=== PATIENT | male | born 1955 ===

== ENCOUNTER 2017-12-12 21:37 | Inpatient (IN) | payer MEDICAID ==
[~2017-12-12] VITALS: Ht 174 cm; Wt 80.8 kg
[~2017-12-12 21:37] MED LIST: CLIN300C8 PO; LISI-167 PO; LORA-446 PO; METH40TA3 PO
[2017-12-12] MEDS ORDERED: SODIUM CHLORIDE 0.9% 1,000 ML IV ONE (22:47)
[2017-12-12] MEDS ORDERED: MORPHINE SULFATE 4 MG/ML, 1ML ONE (22:50)
[2017-12-12] MEDS ORDERED: SODIUM CHLORIDE FLUSH 10ML SYR IVF ONE (23:00)
[2017-12-12] MEDS ORDERED: SODIUM CHLORIDE 0.9% 1,000ML IVBOLUS ONE (23:00)
[2017-12-12] MEDS ORDERED: MORPHINE SULFATE 4 MG/ML, 1ML IVPush PRN (23:00)
[2017-12-12 23:29] LABS: MEAN CORPUSCULAR HEMOGLOBIN 33.6 pg (27.5-34.5); MEAN CORPUSCULAR HGB CONC 35.1 g/dL (33.2-36.2); MEAN CORPUSCULAR VOLUME 95.9 fL (81-97); RED BLOOD COUNT 3.04 x10^6/uL (4.38-5.82); RED CELL DISTRIBUTION WIDTH 14.4 % (9.4-14.8)
[2017-12-12 23:39] LABS: ALANINE AMINOTRANSFERASE 44 U/L (12-78); ALBUMIN 2.1 g/dL (3.4-5.0); ANION GAP 10 mmol/L (5-15); CALCIUM 7.4 mg/dL (8.5-10.1); CHLORIDE 96 mmol/L (98-107); CREATININE 0.91 mg/dL (0.7-1.3)
[2017-12-12 23:42] LABS: ALKALINE PHOSPHATASE 244 U/L (45-117); BILIRUBIN,TOTAL 2.5 mg/dL (0.2-1.0); TOTAL PROTEIN 8.3 g/dL (6.4-8.2)
[2017-12-12 23:50] LABS: MD SCAN; MEAN PLATELET VOLUME 7.5 fL (7.4-10.4); PLATELET COUNT 89 x10^3/uL (130-400)
[2017-12-12 23:51] LABS: BASOPHILS # (AUTO) 0.03 x10^3/uL (0-0.1); BASOPHILS % (AUTO) 0 % (0-1); EOSINOPHILS # (AUTO) 0.01 x10^3/uL (0-0.4); EOSINOPHILS % (AUTO) 0 % (1-7); LYMPHOCYTES # (AUTO) 0.46 x10^3/uL (1-3.4); LYMPHOCYTES % (AUTO) 5 % (22-44); MONOCYTES # (AUTO) 0.61 x10^3/uL (0.2-0.8); MONOCYTES % (AUTO) 6 % (2-9); NEUTROPHILS % (AUTO) 89 % (42-75)
[2017-12-13] MEDS ORDERED: CLINDAMYCIN PMX 900MG/50ML 50 ML IV ONE (00:30)
[2017-12-13] MEDS ORDERED: CLINDAMYCIN PMX 900MG/50ML 50 ML ONE (00:39)
[2017-12-13] MEDS ORDERED: POTASSIUM CHLORIDE 20 MEQ in SODIUM CHLORIDE 0.9% 250 ML IV ONE (01:00)
[2017-12-13] MEDS ORDERED: EPINEPHRINE 1 MG/ML, 1ML ONE (02:13)
[2017-12-13] MEDS ORDERED: BUPIVACAINE/PF 0.5% ONE (02:13)
[2017-12-13] MEDS ORDERED: MIDAZOLAM 1 MG/ML, 2ML ONE (02:29)
[2017-12-13] MEDS ORDERED: FENTANYL PF 250 MCG/5ML ONE ×3 (02:30→03:06)
[2017-12-13] MEDS ORDERED: SUCCINYLCHOLINE 20 MG/ML, 10ML ONE (02:35)
[2017-12-13] MEDS ORDERED: PROPOFOL 10 MG/ML, 20ML ONE (02:35)
[2017-12-13] MEDS ORDERED: FENTANYL PF 100 MCG/2ML ONE (03:12)
[2017-12-13] MEDS ORDERED: HYDROmorphone 2 MG/ML, 1ML ONE (03:12)
[2017-12-13] MEDS: FENTANYL PF 100 MCG/2ML IV PRN ×2 (03:26→03:36)
[2017-12-13] MEDS: HYDROmorphone 1 MG/ML, 1ML IV PRN ×4 (03:27→03:52)
[2017-12-13] MEDS ORDERED: VANCOMYCIN PMX 1GM/200ML 200 ML IVPB SCH (03:30)
[2017-12-13] MEDS ORDERED: OXYcodone 5 MG/5 ML ORAL.SOL UDC PO PRN (03:30)
[2017-12-13] MEDS ORDERED: LABETALOL 5MG/ML, 20ML IV PRN (03:30)
[2017-12-13] MEDS ORDERED: LORazepam 2 MG/ML, 1ML IVPush PRN (03:30)
[2017-12-13] MEDS ORDERED: ALBUTEROL SULFATE 2.5 MG/3 ML NPPB PRN (03:30)
[2017-12-13] MEDS ORDERED: PHARMACY INSTRUCTION MC PRN (03:30)
[2017-12-13] MEDS ORDERED: HALOPERIDOL 5 MG/ML IV PRN (03:30)
[2017-12-13] MEDS ORDERED: hydrALAzine 20 MG/ML, 1ML IV PRN (03:30)
[2017-12-13] MEDS ORDERED: MEPERIDINE/PF 25MG/0.5ML IVPush PRN (03:30)
[2017-12-13] MEDS ORDERED: ONDANSETRON 2MG/ML, 2ML IVPush PRN (03:30)
[2017-12-13 04:29] VITALS: BP 126/79
[2017-12-13] MEDS: LORazepam 2 MG/ML, 1ML IV PRN ×2 (04:48→14:51)
[2017-12-13] MEDS: PIPERACILLIN/TAZO/PMX 3.375GM 50 ML IV SCH ×5 (05:55→23:16)
[2017-12-13] MEDS: POTASSIUM CHLORIDE 20 MEQ in D5%-0.45% NACL 1,000 ML IV SCH ×2 (06:46→14:20)
[2017-12-13 07:20] VITALS: BP 127/77
[2017-12-13] MEDS ORDERED: DOCUSATE 100 MG CAPSULE PO PRN (08:30)
[2017-12-13] MEDS ORDERED: POLYETHYLENE GLYCOL 17 GM PACKET PO PRN (08:30)
[2017-12-13] MEDS ORDERED: BISACODYL 10 MG SUPP PR PRN (08:30)
[2017-12-13] MEDS ORDERED: hydrALAzine 20 MG/ML, 1ML IVPush PRN (08:30)
[2017-12-13 09:42] LABS: MEAN CORPUSCULAR HEMOGLOBIN 33.6 pg (27.5-34.5); MEAN CORPUSCULAR HGB CONC 34.9 g/dL (33.2-36.2); MEAN CORPUSCULAR VOLUME 96.3 fL (81-97); MEAN PLATELET VOLUME 7.5 fL (7.4-10.4); PLATELET COUNT 75 x10^3/uL (130-400); RED BLOOD COUNT 2.43 x10^6/uL (4.38-5.82); RED CELL DISTRIBUTION WIDTH 14.3 % (9.4-14.8)
[2017-12-13 09:53] LABS: ALBUMIN 1.6 g/dL (3.4-5.0); ANION GAP 8 mmol/L (5-15); CALCIUM 6.7 mg/dL (8.5-10.1); CHLORIDE 99 mmol/L (98-107)
[2017-12-13 09:55] LABS: ALANINE AMINOTRANSFERASE 32 U/L (12-78); ALKALINE PHOSPHATASE 181 U/L (45-117); BILIRUBIN,TOTAL 2.1 mg/dL (0.2-1.0); CREATININE 0.75 mg/dL (0.7-1.3); TOTAL PROTEIN 6.3 g/dL (6.4-8.2)
[2017-12-13] MEDS: MULTIVITAMIN 1 TABLET PO SCH (10:01)
[2017-12-13] MEDS: OXYcodone IR 5MG TABLET PO PRN ×2 (10:01→19:27)
[2017-12-13] MEDS: SODIUM CHLORIDE 0.9% 1,000 ML IV SCH ×2 (10:01→16:36)
[2017-12-13] MEDS: THIAMINE 100MG TABLET PO SCH (10:01)
[2017-12-13 10:04] LABS: INTERNATIONAL NORMALIZED RATIO 1.44 (0.93-1.1); PROTHROMBIN TIME 14.7 Seconds (9.6-11.5)
[2017-12-13 10:17] LABS: FOLATE LEVEL 7.3 ng/mL (3.1-17.5)
[2017-12-13 10:27] LABS: MD YES
[2017-12-13 10:28] LABS: BAND#(MANUAL) 0.72 x10^3/uL; BANDS%(MANUAL) 12 % (0-7); BASOS#(MANUAL) 0.06 x10^3/uL (0-0.1); BASOS% (MANUAL) 1 % (0-1); EOS#(MANUAL) 0.12 x10^3/uL (0.0-0.4); EOS% (MANUAL) 2 % (1-7); LYMPH#(MANUAL) 0.72 x10^3/uL (1-3.4); LYMPHS% (MANUAL) 12 % (22-44); METAMYELOCYTES# (MANUAL) 0.06 x10^3/uL (0-0); METAMYELOCYTES% (MANUAL) 1 % (0-1); MONOS% (MANUAL) 5 % (2-9); SEG#(MANUAL) 4.02 x10^3/uL (1.8-6.8); SEGS% (MANUAL) 67 % (42-75)
[2017-12-13 10:30] LABS: <PLATELET ESTIMATE> DECREASED; <PLT MORPHOLOGY> NORMAL PLT MORPH; <RBC MORPHOLOGY> NORMAL
[2017-12-13] MEDS: MORPHINE SULFATE 4 MG/ML, 1ML IVPush PRN ×2 (10:58→23:16)
[2017-12-13] MEDS ORDERED: POTASSIUM CHLORIDE 20 MEQ TAB.ER.PRT PO ONE (12:30)
[2017-12-13] MEDS ORDERED: POTASSIUM CHLORIDE 40 MEQ in SODIUM CHLORIDE 0.9% 500 ML IV ONE (12:42)
[2017-12-13 12:45] VITALS: BP 138/81
[2017-12-13 18:45] VITALS: BP 121/73
[2017-12-13] MEDS: DIPHENHYDRAMINE 25 MG CAPSULE PO PRN (21:01)
[2017-12-13 23:42] LABS: AMPHETAMINE SCREEN, URINE Negative (Negative); BARBITURATE SCREEN, URINE Negative (Negative); BENZODIAZEPINE SCREEN, URINE Positive (Negative); CANNABINOID SCREEN, URINE Negative (Negative); COCAINE SCREEN, URINE Negative (Negative); METHADONE SCREEN, URINE Negative (Negative); OPIATE SCREEN, URINE Positive (Negative)
[2017-12-14] MEDS: POTASSIUM CHLORIDE 20 MEQ in D5%-0.45% NACL 1,000 ML IV SCH ×2 (01:13→20:00)
[2017-12-14] MEDS: SODIUM CHLORIDE 0.9% 1,000 ML IV SCH ×2 (01:18→14:11)
[2017-12-14] MEDS: MORPHINE SULFATE 4 MG/ML, 1ML IVPush PRN ×6 (02:29→21:35)
[2017-12-14 03:20] VITALS: BP 133/73
[2017-12-14] MEDS: LORazepam 2 MG/ML, 1ML IV PRN ×3 (03:38→21:34)
[2017-12-14] MEDS: PIPERACILLIN/TAZO/PMX 3.375GM 50 ML IV SCH ×3 (05:07→16:55)
[2017-12-14 05:23] LABS: MEAN CORPUSCULAR HEMOGLOBIN 34.1 pg (27.5-34.5); MEAN CORPUSCULAR HGB CONC 35.1 g/dL (33.2-36.2); MEAN CORPUSCULAR VOLUME 97.1 fL (81-97); RED BLOOD COUNT 2.23 x10^6/uL (4.38-5.82); RED CELL DISTRIBUTION WIDTH 14.4 % (9.4-14.8)
[2017-12-14 05:28] LABS: ALBUMIN 1.6 g/dL (3.4-5.0); ANION GAP 8 mmol/L (5-15); CALCIUM 6.1 mg/dL (8.5-10.1); CHLORIDE 104 mmol/L (98-107)
[2017-12-14 05:40] LABS: ALANINE AMINOTRANSFERASE 26 U/L (12-78); ALKALINE PHOSPHATASE 165 U/L (45-117); BILIRUBIN,TOTAL 1.6 mg/dL (0.2-1.0); MD YES; MEAN PLATELET VOLUME 7.7 fL (7.4-10.4); PLATELET COUNT 68 x10^3/uL (130-400); TOTAL PROTEIN 6.3 g/dL (6.4-8.2)
[2017-12-14 05:44] LABS: BAND#(MANUAL) 0.18 x10^3/uL; BANDS%(MANUAL) 5 % (0-7); EOS#(MANUAL) 0.11 x10^3/uL (0.0-0.4); EOS% (MANUAL) 3 % (1-7); LYMPHS% (MANUAL) 11 % (22-44); MONOS#(MANUAL) 0.14 x10^3/uL (0.3-2.7); MONOS% (MANUAL) 4 % (2-9); SEG#(MANUAL) 2.77 x10^3/uL (1.8-6.8); SEGS% (MANUAL) 77 % (42-75)
[2017-12-14 05:46] LABS: <PLATELET ESTIMATE> DECREASED; <PLT MORPHOLOGY> NORMAL PLT MORPH; <RBC MORPHOLOGY> NORMAL
[2017-12-14] MEDS ORDERED: POTASSIUM CHLORIDE 20 MEQ TAB.ER.PRT PO ONE (06:00)
[2017-12-14 06:21] LABS: CLOSTRIDIUM DIFFICILE ANTIGEN NEGATIVE; CLOSTRIDIUM DIFFICILE TOXIN NEGATIVE (Negative)
[2017-12-14] MEDS ORDERED: MAGNESIUM SULFATE PMX 2GM/50ML 50 ML IV ONE ×2 (06:30)
[2017-12-14 06:49] VITALS: BP 120/73
[2017-12-14] MEDS: THIAMINE 100MG TABLET PO SCH (09:09)
[2017-12-14] MEDS: ENOXAPARIN 40 MG/0.4 ML SQ SCH (09:09)
[2017-12-14] MEDS: NEUTRA PHOS K 250 MG TABLET PO SCH ×3 (09:09→21:35)
[2017-12-14] MEDS: MULTIVITAMIN 1 TABLET PO SCH (09:14)
[2017-12-14] MEDS: OXYcodone IR 5MG TABLET PO PRN ×2 (11:00→18:46)
[2017-12-14 14:07] VITALS: BP 130/74
[2017-12-14 18:24] VITALS: BP 133/68
[2017-12-15] MEDS: PIPERACILLIN/TAZO/PMX 3.375GM 50 ML IV SCH ×4 (00:34→17:00)
[2017-12-15] MEDS: SODIUM CHLORIDE 0.9% 1,000 ML IV SCH ×3 (00:34→17:00)
[2017-12-15 00:55] VITALS: BP 144/83
[2017-12-15] MEDS: MORPHINE SULFATE 4 MG/ML, 1ML IVPush PRN ×4 (01:55→18:10)
[2017-12-15 05:16] LABS: MEAN CORPUSCULAR HEMOGLOBIN 33.6 pg (27.5-34.5); MEAN CORPUSCULAR HGB CONC 34.8 g/dL (33.2-36.2); MEAN CORPUSCULAR VOLUME 96.4 fL (81-97); RED BLOOD COUNT 2.32 x10^6/uL (4.38-5.82); RED CELL DISTRIBUTION WIDTH 14.3 % (9.4-14.8)
[2017-12-15 05:20] LABS: CALCIUM 6.5 mg/dL (8.5-10.1); CHLORIDE 104 mmol/L (98-107)
[2017-12-15 05:25] LABS: ALANINE AMINOTRANSFERASE 24 U/L (12-78); ALBUMIN 1.7 g/dL (3.4-5.0); ALKALINE PHOSPHATASE 159 U/L (45-117); ANION GAP 8 mmol/L (5-15); CREATININE 0.61 mg/dL (0.7-1.3); TOTAL PROTEIN 6.7 g/dL (6.4-8.2)
[2017-12-15 05:47] LABS: BASOPHILS # (AUTO) 0.02 x10^3/uL (0-0.1); BASOPHILS % (AUTO) 1 % (0-1); EOSINOPHILS # (AUTO) 0.19 x10^3/uL (0-0.4); EOSINOPHILS % (AUTO) 6 % (1-7); LYMPHOCYTES # (AUTO) 0.89 x10^3/uL (1-3.4); LYMPHOCYTES % (AUTO) 26 % (22-44); MD SCAN; MEAN PLATELET VOLUME 7.2 fL (7.4-10.4); MONOCYTES # (AUTO) 0.38 x10^3/uL (0.2-0.8); MONOCYTES % (AUTO) 11 % (2-9); NEUTROPHILS # (AUTO) 1.94 x10^3/uL (1.8-6.8); NEUTROPHILS % (AUTO) 57 % (42-75); PLATELET COUNT 88 x10^3/uL (130-400)
[2017-12-15] MEDS: LORazepam 2 MG/ML, 1ML IV PRN ×2 (05:59→15:46)
[2017-12-15] MEDS: OXYcodone IR 5MG TABLET PO PRN ×3 (05:59→21:18)
[2017-12-15] MEDS: POTASSIUM CHLORIDE 20 MEQ in D5%-0.45% NACL 1,000 ML IV SCH ×2 (06:06→20:00)
[2017-12-15 06:43] VITALS: BP 116/80
[2017-12-15] MEDS ORDERED: POTASSIUM CHLORIDE 20 MEQ TAB.ER.PRT PO ONE (08:30)
[2017-12-15] MEDS: ENOXAPARIN 40 MG/0.4 ML SQ SCH (08:47)
[2017-12-15] MEDS: THIAMINE 100MG TABLET PO SCH (08:47)
[2017-12-15] MEDS: MULTIVITAMIN 1 TABLET PO SCH (08:47)
[2017-12-15] MEDS: NEUTRA PHOS K 250 MG TABLET PO SCH ×3 (08:47→21:19)
[2017-12-15] MEDS: PANTOPRAZOLE 40 MG IV IVPush SCH (12:19)
[2017-12-15 14:30] VITALS: BP 151/70
[2017-12-15 16:40] LABS: OCCULT BLOOD NEGATIVE (NEGATIVE)
[2017-12-15 19:12] VITALS: BP 154/83
[2017-12-15] MEDS ORDERED: MAGNESIUM SULFATE PMX 2GM/50ML 50 ML IV ONE (19:30)
[2017-12-16] MEDS: OXYcodone IR 5MG TABLET PO PRN ×6 (00:53→21:21)
[2017-12-16] MEDS: LORazepam 2 MG/ML, 1ML IV PRN ×3 (00:53→17:04)
[2017-12-16] MEDS: PIPERACILLIN/TAZO/PMX 3.375GM 50 ML IV SCH ×4 (00:54→17:03)
[2017-12-16] MEDS: DIPHENHYDRAMINE 25 MG CAPSULE PO PRN ×2 (01:04→02:02)
[2017-12-16 01:58] VITALS: BP 127/71
[2017-12-16 05:46] LABS: ALANINE AMINOTRANSFERASE 22 U/L (12-78); ALBUMIN 1.7 g/dL (3.4-5.0); ANION GAP 8 mmol/L (5-15); CALCIUM 6.4 mg/dL (8.5-10.1); CHLORIDE 109 mmol/L (98-107); CREATININE 0.65 mg/dL (0.7-1.3)
[2017-12-16 05:48] LABS: ALKALINE PHOSPHATASE 133 U/L (45-117); BILIRUBIN,TOTAL 0.7 mg/dL (0.2-1.0); TOTAL PROTEIN 6.5 g/dL (6.4-8.2)
[2017-12-16] MEDS: SODIUM CHLORIDE 0.9% 1,000 ML IV SCH ×2 (05:56→11:30)
[2017-12-16] MEDS: PANTOPRAZOLE 40 MG IV IVPush SCH ×2 (05:56→17:51)
[2017-12-16 06:01] LABS: MEAN CORPUSCULAR HEMOGLOBIN 34.1 pg (27.5-34.5); MEAN CORPUSCULAR VOLUME 97.5 fL (81-97); MEAN PLATELET VOLUME 6.9 fL (7.4-10.4); PLATELET COUNT 91 x10^3/uL (130-400); RED BLOOD COUNT 2.13 x10^6/uL (4.38-5.82); RED CELL DISTRIBUTION WIDTH 14.6 % (9.4-14.8)
[2017-12-16] MEDS: POTASSIUM CHLORIDE 20 MEQ in D5%-0.45% NACL 1,000 ML IV SCH ×2 (06:06→13:01)
[2017-12-16 06:33] LABS: MD MORPH REVIEW ONLY
[2017-12-16 06:34] LABS: BASOPHILS # (AUTO) 0.03 x10^3/uL (0-0.1); BASOPHILS % (AUTO) 1 % (0-1); EOSINOPHILS # (AUTO) 0.18 x10^3/uL (0-0.4); EOSINOPHILS % (AUTO) 6 % (1-7); LYMPHOCYTES % (AUTO) 30 % (22-44); MONOCYTES # (AUTO) 0.44 x10^3/uL (0.2-0.8); MONOCYTES % (AUTO) 14 % (2-9); NEUTROPHILS # (AUTO) 1.48 x10^3/uL (1.8-6.8); NEUTROPHILS % (AUTO) 49 % (42-75)
[2017-12-16 06:35] LABS: ANISOCYTOSIS 1+; POLYCHROMASIA 1+
[2017-12-16 06:36] LABS: <PLATELET ESTIMATE> DECREASED; <PLT MORPHOLOGY> NORMAL PLT MORPH
[2017-12-16 07:05] VITALS: BP 154/71
[2017-12-16] MEDS ORDERED: PHARMACOKINETIC MONITORING MC PRN (07:30)
[2017-12-16] MEDS ORDERED: VANCOMYCIN PER PHARMACY MC PRN (07:30)
[2017-12-16] MEDS ORDERED: PHARMACOKINETIC CONSULTATION MC ONE (07:30)
[2017-12-16] MEDS: ENOXAPARIN 40 MG/0.4 ML SQ SCH (09:00)
[2017-12-16] MEDS: POTASSIUM CHLORIDE 20 MEQ TAB.ER.PRT PO SCH ×2 (09:17→17:12)
[2017-12-16] MEDS: VANCOMYCIN 1,600 MG in SODIUM CHLORIDE 0.9% 250 ML IV SCH ×2 (09:17→21:21)
[2017-12-16] MEDS: MAGNESIUM OXIDE 400 MG TABLET PO SCH ×2 (09:18→21:21)
[2017-12-16] MEDS: NEUTRA PHOS K 250 MG TABLET PO SCH ×3 (09:18→21:21)
[2017-12-16] MEDS: THIAMINE 100MG TABLET PO SCH (09:24)
[2017-12-16] MEDS: MULTIVITAMIN 1 TABLET PO SCH (09:24)
[2017-12-16] MEDS: MAGNESIUM SULFATE PMX 2GM/50ML 50 ML IV SCH (11:54)
[2017-12-16 12:49] VITALS: BP 136/80
[2017-12-16 18:39] VITALS: BP 133/75
[2017-12-17] MEDS: PIPERACILLIN/TAZO/PMX 3.375GM 50 ML IV SCH ×4 (00:40→22:14)
[2017-12-17] MEDS: OXYcodone IR 5MG TABLET PO PRN ×6 (01:08→22:14)
[2017-12-17] MEDS: LORazepam 2 MG/ML, 1ML IV PRN ×3 (01:08→18:15)
[2017-12-17 02:00] VITALS: BP 130/74
[2017-12-17] MEDS: MAGNESIUM SULFATE PMX 2GM/50ML 50 ML IV SCH (02:23)
[2017-12-17] MEDS: POTASSIUM CHLORIDE 20 MEQ in D5%-0.45% NACL 1,000 ML IV SCH (06:04)
[2017-12-17 07:02] VITALS: BP 135/74
[2017-12-17 07:09] LABS: ALANINE AMINOTRANSFERASE 23 U/L (12-78); ALBUMIN 1.9 g/dL (3.4-5.0); ANION GAP 9 mmol/L (5-15); CALCIUM 6.9 mg/dL (8.5-10.1); CHLORIDE 105 mmol/L (98-107); CREATININE 1.37 mg/dL (0.7-1.3)
[2017-12-17 07:11] LABS: ALKALINE PHOSPHATASE 153 U/L (45-117); BILIRUBIN,TOTAL 0.7 mg/dL (0.2-1.0); TOTAL PROTEIN 6.8 g/dL (6.4-8.2)
[2017-12-17 07:36] LABS: BASOPHILS # (AUTO) 0.07 x10^3/uL (0-0.1); BASOPHILS % (AUTO) 1 % (0-1); EOSINOPHILS # (AUTO) 0.28 x10^3/uL (0-0.4); EOSINOPHILS % (AUTO) 6 % (1-7); LYMPHOCYTES # (AUTO) 0.77 x10^3/uL (1-3.4); LYMPHOCYTES % (AUTO) 16 % (22-44); MD SCAN; MEAN CORPUSCULAR HEMOGLOBIN 34.3 pg (27.5-34.5); MEAN CORPUSCULAR HGB CONC 34.8 g/dL (33.2-36.2); MEAN CORPUSCULAR VOLUME 98.7 fL (81-97); MEAN PLATELET VOLUME 7.1 fL (7.4-10.4); MONOCYTES # (AUTO) 0.59 x10^3/uL (0.2-0.8); MONOCYTES % (AUTO) 12 % (2-9); NEUTROPHILS # (AUTO) 3.16 x10^3/uL (1.8-6.8); NEUTROPHILS % (AUTO) 65 % (42-75); PLATELET COUNT 80 x10^3/uL (130-400); RED BLOOD COUNT 2.48 x10^6/uL (4.38-5.82); RED CELL DISTRIBUTION WIDTH 15.5 % (9.4-14.8)
[2017-12-17] MEDS: PANTOPRAZOLE 40 MG IV IVPush SCH (07:50)
[2017-12-17] MEDS: MULTIVITAMIN 1 TABLET PO SCH (09:00)
[2017-12-17] MEDS: NEUTRA PHOS K 250 MG TABLET PO SCH ×3 (09:35→21:11)
[2017-12-17] MEDS: THIAMINE 100MG TABLET PO SCH (09:35)
[2017-12-17] MEDS: POTASSIUM CHLORIDE 20 MEQ TAB.ER.PRT PO SCH ×2 (09:35→18:16)
[2017-12-17] MEDS: MAGNESIUM OXIDE 400 MG TABLET PO SCH ×2 (09:35→21:11)
[2017-12-17] MEDS: VANCOMYCIN 1,600 MG in SODIUM CHLORIDE 0.9% 250 ML IV SCH (09:50)
[2017-12-17 14:13] VITALS: BP 139/81
[2017-12-17] MEDS: MORPHINE SULFATE 4 MG/ML, 1ML IVPush PRN (15:02)
[2017-12-17] MEDS: PANTOPROZOLE 40MG TABLET PO SCH (18:28)
[2017-12-17 19:11] VITALS: BP 154/84
[2017-12-18 01:12] VITALS: BP 104/48
[2017-12-18] MEDS: LORazepam 2 MG/ML, 1ML IV PRN ×3 (02:24→21:43)
[2017-12-18] MEDS: OXYcodone IR 5MG TABLET PO PRN ×3 (02:24→19:58)
[2017-12-18] MEDS: POTASSIUM CHLORIDE 20 MEQ in D5%-0.45% NACL 1,000 ML IV SCH ×3 (02:34→19:09)
[2017-12-18] MEDS: PIPERACILLIN/TAZO/PMX 3.375GM 50 ML IV SCH (05:19)
[2017-12-18] MEDS: MULTIVITAMIN 1 TABLET PO SCH (07:57)
[2017-12-18] MEDS: MAGNESIUM OXIDE 400 MG TABLET PO SCH ×2 (07:57→19:57)
[2017-12-18] MEDS: NEUTRA PHOS K 250 MG TABLET PO SCH ×3 (07:57→19:57)
[2017-12-18] MEDS: POTASSIUM CHLORIDE 20 MEQ TAB.ER.PRT PO SCH ×2 (07:57→16:23)
[2017-12-18] MEDS: THIAMINE 100MG TABLET PO SCH (07:58)
[2017-12-18] MEDS: PANTOPROZOLE 40MG TABLET PO SCH ×2 (07:58→16:24)
[2017-12-18 08:00] VITALS: BP 156/78
[2017-12-18] MEDS: MORPHINE SULFATE 4 MG/ML, 1ML IVPush PRN (10:48)
[2017-12-18 14:53] VITALS: BP 138/62
[2017-12-18 19:25] VITALS: BP 135/82
[2017-12-19 02:00] VITALS: BP 145/88
[2017-12-19 05:47] LABS: BASOPHILS # (AUTO) 0.02 x10^3/uL (0-0.1); BASOPHILS % (AUTO) 1 % (0-1); EOSINOPHILS # (AUTO) 0.22 x10^3/uL (0-0.4); EOSINOPHILS % (AUTO) 5 % (1-7); LYMPHOCYTES % (AUTO) 17 % (22-44); MD NO; MEAN CORPUSCULAR HEMOGLOBIN 35.1 pg (27.5-34.5); MEAN CORPUSCULAR HGB CONC 34.7 g/dL (33.2-36.2); MEAN CORPUSCULAR VOLUME 101.1 fL (81-97); MEAN PLATELET VOLUME 7.6 fL (7.4-10.4); MONOCYTES # (AUTO) 0.64 x10^3/uL (0.2-0.8); MONOCYTES % (AUTO) 14 % (2-9); NEUTROPHILS # (AUTO) 2.91 x10^3/uL (1.8-6.8); NEUTROPHILS % (AUTO) 63 % (42-75); PLATELET COUNT 106 x10^3/uL (130-400); RED BLOOD COUNT 2.29 x10^6/uL (4.38-5.82); RED CELL DISTRIBUTION WIDTH 16.3 % (9.4-14.8)
[2017-12-19 05:54] LABS: ALANINE AMINOTRANSFERASE 17 U/L (12-78); ALBUMIN 1.9 g/dL (3.4-5.0); ANION GAP 7 mmol/L (5-15); CALCIUM 7.5 mg/dL (8.5-10.1); CHLORIDE 107 mmol/L (98-107); CREATININE 4.28 mg/dL (0.7-1.3)
[2017-12-19 05:55] LABS: ALKALINE PHOSPHATASE 124 U/L (45-117); BILIRUBIN,TOTAL 0.7 mg/dL (0.2-1.0)
[2017-12-19] MEDS: POTASSIUM CHLORIDE 20 MEQ TAB.ER.PRT PO SCH (07:54)
[2017-12-19] MEDS: LORazepam 2 MG/ML, 1ML IV PRN ×2 (07:54→23:37)
[2017-12-19] MEDS: MAGNESIUM OXIDE 400 MG TABLET PO SCH (07:54)
[2017-12-19] MEDS: THIAMINE 100MG TABLET PO SCH (07:54)
[2017-12-19] MEDS: NEUTRA PHOS K 250 MG TABLET PO SCH (07:54)
[2017-12-19] MEDS: PANTOPROZOLE 40MG TABLET PO SCH (07:54)
[2017-12-19] MEDS: MULTIVITAMIN 1 TABLET PO SCH (07:55)
[2017-12-19 08:38] VITALS: BP 139/82
[2017-12-19 09:43] LABS: ANION GAP 8 mmol/L (5-15); CALCIUM 7.2 mg/dL (8.5-10.1); CHLORIDE 107 mmol/L (98-107); CREATININE 4.23 mg/dL (0.7-1.3)
[2017-12-19] MEDS: SODIUM CHLORIDE 0.9% 1,000 ML IV SCH ×2 (12:30→21:25)
[2017-12-19 12:55] LABS: MICROSCOPIC AUTO
[2017-12-19 13:03] LABS: CREATININE,URINE RANDOM 15.5 mg/dL
[2017-12-19] MEDS: OXYcodone IR 5MG TABLET PO PRN ×2 (13:10→23:37)
[2017-12-19 13:13] LABS: CULTURE INDICATED? NO
[2017-12-19] MEDS ORDERED: MAGNESIUM SULFATE PMX 2GM/50ML 50 ML IV ONE (13:30)
[2017-12-19 14:23] VITALS: BP 142/79
[2017-12-19] MEDS: HEPARIN 5,000 UNITS/ML, 1ML SQ SCH ×2 (15:11→23:13)
[2017-12-19] MEDS: LACTOBACILLUS CHEW TABLET PO SCH ×2 (16:21→21:24)
[2017-12-19 18:48] VITALS: BP 155/82
[2017-12-19] MEDS: ZOLPIDEM 10MG TABLET PO PRN (21:24)
[2017-12-19] MEDS: DIPHENHYDRAMINE 25 MG CAPSULE PO PRN (23:37)
[2017-12-20 01:41] VITALS: BP 156/86
[2017-12-20] MEDS: SODIUM CHLORIDE 0.9% 1,000 ML IV SCH (04:52)
[2017-12-20] MEDS: HEPARIN 5,000 UNITS/ML, 1ML SQ SCH ×3 (06:41→22:31)
[2017-12-20 07:30] VITALS: BP 133/60
[2017-12-20] MEDS ORDERED: PHARMACY MAY ADJ FOR RENAL FX MC PRN (08:00)
[2017-12-20 08:14] LABS: ALBUMIN 1.9 g/dL (3.4-5.0); ANION GAP 7 mmol/L (5-15); CALCIUM 7.3 mg/dL (8.5-10.1); CHLORIDE 108 mmol/L (98-107)
[2017-12-20 08:17] LABS: MEAN CORPUSCULAR HEMOGLOBIN 34.2 pg (27.5-34.5); MEAN CORPUSCULAR HGB CONC 34.4 g/dL (33.2-36.2); MEAN CORPUSCULAR VOLUME 99.7 fL (81-97); MEAN PLATELET VOLUME 7.4 fL (7.4-10.4); PLATELET COUNT 132 x10^3/uL (130-400); RED BLOOD COUNT 2.25 x10^6/uL (4.38-5.82)
[2017-12-20 08:18] LABS: ALANINE AMINOTRANSFERASE 16 U/L (12-78); ALKALINE PHOSPHATASE 111 U/L (45-117); BILIRUBIN,TOTAL 0.7 mg/dL (0.2-1.0); CREATININE 4.64 mg/dL (0.7-1.3); TOTAL PROTEIN 6.7 g/dL (6.4-8.2); VANCOMYCIN,RANDOM 18.7 mcg/mL
[2017-12-20 09:21] LABS: BASOPHILS # (AUTO) 0.02 x10^3/uL (0-0.1); BASOPHILS % (AUTO) 1 % (0-1); EOSINOPHILS # (AUTO) 0.22 x10^3/uL (0-0.4); EOSINOPHILS % (AUTO) 5 % (1-7); LYMPHOCYTES # (AUTO) 0.84 x10^3/uL (1-3.4); LYMPHOCYTES % (AUTO) 20 % (22-44); MD SCAN; MONOCYTES # (AUTO) 0.55 x10^3/uL (0.2-0.8); MONOCYTES % (AUTO) 13 % (2-9); NEUTROPHILS # (AUTO) 2.67 x10^3/uL (1.8-6.8); NEUTROPHILS % (AUTO) 62 % (42-75)
[2017-12-20] MEDS: THIAMINE 100MG TABLET PO SCH (09:21)
[2017-12-20] MEDS: MULTIVITAMIN 1 TABLET PO SCH (09:21)
[2017-12-20] MEDS: LACTOBACILLUS CHEW TABLET PO SCH ×3 (09:21→20:37)
[2017-12-20] MEDS: MORPHINE SULFATE 4 MG/ML, 1ML IVPush PRN ×2 (09:44→22:31)
[2017-12-20 14:00] VITALS: BP 167/87
[2017-12-20] MEDS: LINEZOLID 600 MG TABLET PO SCH (14:14)
[2017-12-20] MEDS: ERGOCALCIFEROL 50,000 UNIT CAPSULE PO SCH (14:14)
[2017-12-20] MEDS: SODIUM BICARBONATE 8.4% 75 MEQ in SODIUM CHLORIDE 0.45% 1,000 ML IV SCH ×2 (16:57→22:31)
[2017-12-20] MEDS: OXYcodone IR 5MG TABLET PO PRN (18:03)
[2017-12-20 20:01] VITALS: BP 167/90
[2017-12-20] MEDS: DIPHENHYDRAMINE 25 MG CAPSULE PO PRN (20:37)
[2017-12-20] MEDS: ZOLPIDEM 10MG TABLET PO PRN (22:31)
[2017-12-21] MEDS: ACETAMINOPHEN 650 MG/20.3 ML UDC PO PRN (00:47)
[2017-12-21] MEDS: OXYcodone IR 5MG TABLET PO PRN (00:48)
[2017-12-21 01:03] VITALS: BP 156/85
[2017-12-21] MEDS: LORazepam 2 MG/ML, 1ML IV PRN (02:05)
[2017-12-21] MEDS: LINEZOLID 600 MG TABLET PO SCH ×2 (02:05→13:32)
[2017-12-21] MEDS: HEPARIN 5,000 UNITS/ML, 1ML SQ SCH ×3 (05:58→21:32)
[2017-12-21 07:29] LABS: MEAN CORPUSCULAR HGB CONC 34.1 g/dL (33.2-36.2); MEAN CORPUSCULAR VOLUME 99.6 fL (81-97); MEAN PLATELET VOLUME 7.4 fL (7.4-10.4); PLATELET COUNT 143 x10^3/uL (130-400); RED BLOOD COUNT 2.26 x10^6/uL (4.38-5.82); RED CELL DISTRIBUTION WIDTH 15.6 % (9.4-14.8)
[2017-12-21 07:41] LABS: ANION GAP 8 mmol/L (5-15); CALCIUM 7.3 mg/dL (8.5-10.1); CHLORIDE 106 mmol/L (98-107)
[2017-12-21 07:45] LABS: ALANINE AMINOTRANSFERASE 13 U/L (12-78); ALKALINE PHOSPHATASE 115 U/L (45-117); BILIRUBIN,TOTAL 0.9 mg/dL (0.2-1.0); CREATININE 4.89 mg/dL (0.7-1.3)
[2017-12-21 07:50] VITALS: BP 138/84
[2017-12-21 08:05] LABS: MD YES
[2017-12-21 08:07] LABS: <PLATELET ESTIMATE> ADEQUATE; <PLT MORPHOLOGY> NORMAL PLT MORPH; ANISOCYTOSIS 1+; EOS% (MANUAL) 2 % (1-7); LYMPH#(MANUAL) 0.78 x10^3/uL (1-3.4); LYMPHS% (MANUAL) 16 % (22-44); MONOS#(MANUAL) 0.29 x10^3/uL (0.3-2.7); MONOS% (MANUAL) 6 % (2-9); SEG#(MANUAL) 3.72 x10^3/uL (1.8-6.8); SEGS% (MANUAL) 76 % (42-75)
[2017-12-21] MEDS: LACTOBACILLUS CHEW TABLET PO SCH ×3 (08:10→21:32)
[2017-12-21] MEDS: THIAMINE 100MG TABLET PO SCH (08:10)
[2017-12-21] MEDS: MULTIVITAMIN 1 TABLET PO SCH (08:10)
[2017-12-21] MEDS: ERGOCALCIFEROL 50,000 UNIT CAPSULE PO SCH (08:10)
[2017-12-21] MEDS: MORPHINE SULFATE 4 MG/ML, 1ML IVPush PRN ×3 (08:16→21:32)
[2017-12-21] MEDS: SODIUM BICARBONATE 8.4% 75 MEQ in SODIUM CHLORIDE 0.45% 1,000 ML IV SCH (11:08)
[2017-12-21 11:19] LABS: ALBUMIN 1.9 g/dL (3.4-5.0); BILIRUBIN, DIRECT 0.3 mg/dL (0.1-0.2)
[2017-12-21 11:22] LABS: BILIRUBIN,INDIRECT 0.4 mg/dL (0.0-2.0); BILIRUBIN,TOTAL 0.7 mg/dL (0.2-1.0); TOTAL PROTEIN 6.8 g/dL (6.4-8.2)
[2017-12-21 14:20] VITALS: BP 127/67
[2017-12-21 20:52] VITALS: BP 130/60
[2017-12-22] MEDS: LORazepam 2 MG/ML, 1ML IV PRN ×2 (00:22→20:27)
[2017-12-22] MEDS: SODIUM BICARBONATE 8.4% 75 MEQ in SODIUM CHLORIDE 0.45% 1,000 ML IV SCH ×2 (00:22→14:27)
[2017-12-22] MEDS: LINEZOLID 600 MG TABLET PO SCH ×2 (02:04→13:12)
[2017-12-22] MEDS: ZOLPIDEM 10MG TABLET PO PRN (02:05)
[2017-12-22] MEDS: DIPHENHYDRAMINE 25 MG CAPSULE PO PRN (02:05)
[2017-12-22 03:04] VITALS: BP 128/58
[2017-12-22 05:52] LABS: CHLORIDE 105 mmol/L (98-107)
[2017-12-22 06:08] LABS: ALANINE AMINOTRANSFERASE 14 U/L (12-78); ALKALINE PHOSPHATASE 114 U/L (45-117); ANION GAP 7 mmol/L (5-15); BILIRUBIN,TOTAL 0.7 mg/dL (0.2-1.0); CALCIUM 7.4 mg/dL (8.5-10.1); CREATININE 5.07 mg/dL (0.7-1.3); TOTAL PROTEIN 7.1 g/dL (6.4-8.2)
[2017-12-22] MEDS: HEPARIN 5,000 UNITS/ML, 1ML SQ SCH ×3 (06:13→22:15)
[2017-12-22] MEDS: OXYcodone IR 5MG TABLET PO PRN ×3 (06:14→22:16)
[2017-12-22 07:10] LABS: BASOPHILS # (AUTO) 0.02 x10^3/uL (0-0.1); BASOPHILS % (AUTO) 0 % (0-1); EOSINOPHILS # (AUTO) 0.31 x10^3/uL (0-0.4); EOSINOPHILS % (AUTO) 6 % (1-7); LYMPHOCYTES # (AUTO) 0.92 x10^3/uL (1-3.4); LYMPHOCYTES % (AUTO) 18 % (22-44); MD NO; MEAN CORPUSCULAR HEMOGLOBIN 33.6 pg (27.5-34.5); MEAN CORPUSCULAR HGB CONC 34.2 g/dL (33.2-36.2); MEAN CORPUSCULAR VOLUME 98.2 fL (81-97); MONOCYTES % (AUTO) 12 % (2-9); NEUTROPHILS % (AUTO) 63 % (42-75); PLATELET COUNT 160 x10^3/uL (130-400); RED BLOOD COUNT 2.38 x10^6/uL (4.38-5.82); RED CELL DISTRIBUTION WIDTH 15.3 % (9.4-14.8)
[2017-12-22 07:58] VITALS: BP 150/84
[2017-12-22] MEDS: MULTIVITAMIN 1 TABLET PO SCH (08:36)
[2017-12-22] MEDS: THIAMINE 100MG TABLET PO SCH (08:36)
[2017-12-22] MEDS: MORPHINE SULFATE 4 MG/ML, 1ML IVPush PRN ×2 (08:36→10:22)
[2017-12-22] MEDS: LACTOBACILLUS CHEW TABLET PO SCH ×3 (08:48→20:27)
[2017-12-22 13:39] VITALS: BP 149/67
[2017-12-22 18:32] VITALS: BP 139/78
[2017-12-23] MEDS: SODIUM BICARBONATE 8.4% 75 MEQ in SODIUM CHLORIDE 0.45% 1,000 ML IV SCH ×2 (00:49→10:15)
[2017-12-23 02:00] VITALS: BP 156/90
[2017-12-23] MEDS: LINEZOLID 600 MG TABLET PO SCH ×2 (02:18→14:34)
[2017-12-23] MEDS: OXYcodone IR 5MG TABLET PO PRN ×3 (02:18→21:13)
[2017-12-23] MEDS: HEPARIN 5,000 UNITS/ML, 1ML SQ SCH ×3 (05:40→21:13)
[2017-12-23] MEDS: LORazepam 2 MG/ML, 1ML IV PRN ×2 (05:45→17:56)
[2017-12-23 05:58] LABS: ALBUMIN 2.1 g/dL (3.4-5.0); ANION GAP 8 mmol/L (5-15); CALCIUM 7.4 mg/dL (8.5-10.1); CHLORIDE 104 mmol/L (98-107)
[2017-12-23 06:01] LABS: ALANINE AMINOTRANSFERASE 13 U/L (12-78); ALKALINE PHOSPHATASE 136 U/L (45-117); BILIRUBIN,TOTAL 0.8 mg/dL (0.2-1.0); CREATININE 5.17 mg/dL (0.7-1.3); TOTAL PROTEIN 7.5 g/dL (6.4-8.2)
[2017-12-23 06:04] LABS: BASOPHILS # (AUTO) 0.04 x10^3/uL (0-0.1); BASOPHILS % (AUTO) 1 % (0-1); EOSINOPHILS % (AUTO) 8 % (1-7); LYMPHOCYTES # (AUTO) 1.01 x10^3/uL (1-3.4); LYMPHOCYTES % (AUTO) 20 % (22-44); MD NO; MEAN CORPUSCULAR HEMOGLOBIN 35.1 pg (27.5-34.5); MEAN CORPUSCULAR HGB CONC 35.3 g/dL (33.2-36.2); MEAN CORPUSCULAR VOLUME 99.3 fL (81-97); MEAN PLATELET VOLUME 7.5 fL (7.4-10.4); MONOCYTES # (AUTO) 0.57 x10^3/uL (0.2-0.8); MONOCYTES % (AUTO) 11 % (2-9); NEUTROPHILS # (AUTO) 3.12 x10^3/uL (1.8-6.8); NEUTROPHILS % (AUTO) 61 % (42-75); PLATELET COUNT 157 x10^3/uL (130-400); RED BLOOD COUNT 2.46 x10^6/uL (4.38-5.82); RED CELL DISTRIBUTION WIDTH 15.3 % (9.4-14.8)
[2017-12-23 07:05] VITALS: BP 153/95
[2017-12-23] MEDS: LACTOBACILLUS CHEW TABLET PO SCH ×3 (08:28→21:13)
[2017-12-23] MEDS: THIAMINE 100MG TABLET PO SCH (08:28)
[2017-12-23] MEDS: MULTIVITAMIN 1 TABLET PO SCH (08:28)
[2017-12-23] MEDS: ACETAMINOPHEN 650 MG/20.3 ML UDC PO PRN (11:16)
[2017-12-23] MEDS: SODIUM CHLORIDE 0.9% 1,000 ML IV SCH (11:16)
[2017-12-23 14:27] VITALS: BP 143/82
[2017-12-23 19:42] VITALS: BP 153/89
[2017-12-23] MEDS: ZOLPIDEM 10MG TABLET PO PRN (21:18)
[2017-12-24] MEDS: SODIUM CHLORIDE 0.9% 1,000 ML IV SCH ×2 (00:15→12:27)
[2017-12-24 00:21] VITALS: BP 148/81
[2017-12-24] MEDS: LINEZOLID 600 MG TABLET PO SCH ×3 (02:11→20:34)
[2017-12-24] MEDS: OXYcodone IR 5MG TABLET PO PRN ×4 (02:11→18:26)
[2017-12-24 05:31] LABS: CHLORIDE 108 mmol/L (98-107)
[2017-12-24 05:35] LABS: ANION GAP 10 mmol/L (5-15); CREATININE 4.73 mg/dL (0.7-1.3)
[2017-12-24] MEDS: HEPARIN 5,000 UNITS/ML, 1ML SQ SCH ×3 (05:57→21:24)
[2017-12-24] MEDS: LORazepam 2 MG/ML, 1ML IV PRN (06:49)
[2017-12-24 07:48] VITALS: BP 149/74
[2017-12-24] MEDS ORDERED: POTASSIUM CHLORIDE 20 MEQ TAB.ER.PRT PO ONE (08:00)
[2017-12-24] MEDS: MULTIVITAMIN 1 TABLET PO SCH (08:36)
[2017-12-24] MEDS: THIAMINE 100MG TABLET PO SCH (08:36)
[2017-12-24] MEDS: LACTOBACILLUS CHEW TABLET PO SCH ×3 (08:36→20:33)
[2017-12-24] MEDS: LORazepam 0.5MG TABLET PO PRN ×2 (14:30→20:33)
[2017-12-24 14:43] VITALS: BP 149/79
[2017-12-24] MEDS: DIPHENHYDRAMINE 25 MG CAPSULE PO PRN (20:33)
[2017-12-24 21:19] VITALS: BP 157/81
[2017-12-24] MEDS: ZOLPIDEM 10MG TABLET PO PRN (21:23)
[2017-12-25] MEDS: OXYcodone IR 5MG TABLET PO PRN ×3 (01:33→10:00)
[2017-12-25 02:04] VITALS: BP 156/77
[2017-12-25] MEDS: SODIUM CHLORIDE 0.9% 1,000 ML IV SCH (03:00)
[2017-12-25] MEDS: ACETAMINOPHEN 650 MG/20.3 ML UDC PO PRN ×2 (04:21→10:00)
[2017-12-25 05:06] LABS: BASOPHILS # (AUTO) 0.04 x10^3/uL (0-0.1); BASOPHILS % (AUTO) 1 % (0-1); EOSINOPHILS # (AUTO) 0.55 x10^3/uL (0-0.4); EOSINOPHILS % (AUTO) 10 % (1-7); LYMPHOCYTES # (AUTO) 1.33 x10^3/uL (1-3.4); LYMPHOCYTES % (AUTO) 25 % (22-44); MD NO; MEAN CORPUSCULAR HEMOGLOBIN 33.9 pg (27.5-34.5); MEAN CORPUSCULAR HGB CONC 34.5 g/dL (33.2-36.2); MEAN CORPUSCULAR VOLUME 98.3 fL (81-97); MONOCYTES # (AUTO) 0.49 x10^3/uL (0.2-0.8); MONOCYTES % (AUTO) 9 % (2-9); NEUTROPHILS # (AUTO) 2.91 x10^3/uL (1.8-6.8); NEUTROPHILS % (AUTO) 55 % (42-75); PLATELET COUNT 174 x10^3/uL (130-400); RED CELL DISTRIBUTION WIDTH 15.4 % (9.4-14.8)
[2017-12-25 05:14] LABS: ALBUMIN 2.2 g/dL (3.4-5.0); ANION GAP 9 mmol/L (5-15); CALCIUM 7.8 mg/dL (8.5-10.1); CHLORIDE 109 mmol/L (98-107); CREATININE 4.52 mg/dL (0.7-1.3)
[2017-12-25] MEDS: HEPARIN 5,000 UNITS/ML, 1ML SQ SCH ×2 (05:55→14:57)
[2017-12-25 07:37] VITALS: BP 149/84
[2017-12-25] MEDS: LORazepam 0.5MG TABLET PO PRN (09:59)
[2017-12-25] MEDS: LINEZOLID 600 MG TABLET PO SCH ×2 (09:59→20:53)
[2017-12-25] MEDS: MULTIVITAMIN 1 TABLET PO SCH (09:59)
[2017-12-25] MEDS: THIAMINE 100MG TABLET PO SCH (10:00)
[2017-12-25] MEDS: LACTOBACILLUS CHEW TABLET PO SCH ×3 (10:00→20:53)
[2017-12-25] MEDS ORDERED: IRON SUCROSE COMPLEX 100MG/5ML IV SCH (10:30)
[2017-12-25 12:40] VITALS: BP 150/89
[2017-12-25 15:46] LABS: MICROSCOPIC AUTO
[2017-12-25 15:57] LABS: CREATININE,URINE RANDOM 63.4 mg/dL
[2017-12-25 20:26] VITALS: BP 141/74
[2017-12-25] MEDS: ZOLPIDEM 10MG TABLET PO PRN (20:53)
[2017-12-26] MEDS: HEPARIN 5,000 UNITS/ML, 1ML SQ SCH ×4 (00:04→21:50)
[2017-12-26 01:57] VITALS: BP 150/86
[2017-12-26] MEDS: SODIUM CHLORIDE 0.9% 1,000 ML IV SCH ×2 (03:00→04:30)
[2017-12-26 05:28] LABS: ALANINE AMINOTRANSFERASE 13 U/L (12-78); ALBUMIN 2.4 g/dL (3.4-5.0); ANION GAP 11 mmol/L (5-15); CALCIUM 7.8 mg/dL (8.5-10.1); CHLORIDE 107 mmol/L (98-107)
[2017-12-26 05:30] LABS: BASOPHILS # (AUTO) 0.05 x10^3/uL (0-0.1); BASOPHILS % (AUTO) 1 % (0-1); EOSINOPHILS # (AUTO) 0.77 x10^3/uL (0-0.4); EOSINOPHILS % (AUTO) 15 % (1-7); LYMPHOCYTES # (AUTO) 1.05 x10^3/uL (1-3.4); LYMPHOCYTES % (AUTO) 20 % (22-44); MD NO; MEAN CORPUSCULAR HEMOGLOBIN 33.8 pg (27.5-34.5); MEAN CORPUSCULAR HGB CONC 34.4 g/dL (33.2-36.2); MEAN CORPUSCULAR VOLUME 98.1 fL (81-97); MEAN PLATELET VOLUME 7.4 fL (7.4-10.4); MONOCYTES # (AUTO) 0.43 x10^3/uL (0.2-0.8); MONOCYTES % (AUTO) 8 % (2-9); NEUTROPHILS # (AUTO) 2.99 x10^3/uL (1.8-6.8); NEUTROPHILS % (AUTO) 57 % (42-75); PLATELET COUNT 182 x10^3/uL (130-400); RED BLOOD COUNT 2.57 x10^6/uL (4.38-5.82); RED CELL DISTRIBUTION WIDTH 14.5 % (9.4-14.8)
[2017-12-26 05:31] LABS: ALKALINE PHOSPHATASE 145 U/L (45-117); BILIRUBIN,TOTAL 0.9 mg/dL (0.2-1.0); CREATININE 3.97 mg/dL (0.7-1.3); TOTAL PROTEIN 7.9 g/dL (6.4-8.2)
[2017-12-26 07:36] VITALS: BP 131/75
[2017-12-26] MEDS ORDERED: MAGNESIUM SULFATE PMX 2GM/50ML 50 ML IV ONE (08:30)
[2017-12-26] MEDS: LINEZOLID 600 MG TABLET PO SCH ×2 (10:20→20:18)
[2017-12-26] MEDS: THIAMINE 100MG TABLET PO SCH (10:21)
[2017-12-26] MEDS: ERGOCALCIFEROL 50,000 UNIT CAPSULE PO SCH (10:21)
[2017-12-26] MEDS: MULTIVITAMIN 1 TABLET PO SCH (10:21)
[2017-12-26] MEDS: LACTOBACILLUS CHEW TABLET PO SCH ×3 (10:21→21:00)
[2017-12-26] MEDS: FERROUS SULFATE 325 MG TABLET PO SCH ×2 (10:21→20:18)
[2017-12-26] MEDS: POTASSIUM CHLORIDE 20 MEQ TAB.ER.PRT PO SCH ×2 (10:33→20:18)
[2017-12-26] MEDS ORDERED: LIDOCAINE-MPF 2%, 2ML ONE (11:07)
[2017-12-26 13:00] VITALS: BP 132/79
[2017-12-26 14:47] LABS: ANA SCREEN NEGATIVE (Negative)
[2017-12-26 15:48] LABS: CHLORIDE,URINE RANDOM 109 mmol/L; MICROSCOPIC AUTO; POTASSIUM,URINE RANDOM 28 mmol/L; SODIUM,URINE RANDOM 97 mmol/L
[2017-12-26 16:10] LABS: OSMOLALITY,URINE 341 mOsm/kg (500-850)
[2017-12-26 20:00] VITALS: BP 143/88
[2017-12-27 00:11] VITALS: BP 110/71
[2017-12-27 04:31] LABS: BASOPHILS # (AUTO) 0.09 x10^3/uL (0-0.1); BASOPHILS % (AUTO) 2 % (0-1); EOSINOPHILS # (AUTO) 0.78 x10^3/uL (0-0.4); EOSINOPHILS % (AUTO) 14 % (1-7); LYMPHOCYTES # (AUTO) 1.21 x10^3/uL (1-3.4); LYMPHOCYTES % (AUTO) 22 % (22-44); MD NO; MEAN CORPUSCULAR HEMOGLOBIN 34.7 pg (27.5-34.5); MEAN CORPUSCULAR VOLUME 99.2 fL (81-97); MEAN PLATELET VOLUME 6.6 fL (7.4-10.4); MONOCYTES # (AUTO) 0.45 x10^3/uL (0.2-0.8); MONOCYTES % (AUTO) 8 % (2-9); NEUTROPHILS # (AUTO) 2.94 x10^3/uL (1.8-6.8); NEUTROPHILS % (AUTO) 54 % (42-75); PLATELET COUNT 175 x10^3/uL (130-400); RED BLOOD COUNT 2.46 x10^6/uL (4.38-5.82); RED CELL DISTRIBUTION WIDTH 14.8 % (9.4-14.8)
[2017-12-27 04:40] LABS: CHLORIDE 109 mmol/L (98-107)
[2017-12-27 04:41] LABS: ALANINE AMINOTRANSFERASE 13 U/L (12-78); ALBUMIN 2.4 g/dL (3.4-5.0); ANION GAP 9 mmol/L (5-15); CREATININE 3.55 mg/dL (0.7-1.3)
[2017-12-27 04:43] LABS: ALKALINE PHOSPHATASE 139 U/L (45-117); BILIRUBIN,TOTAL 0.7 mg/dL (0.2-1.0); TOTAL PROTEIN 8.1 g/dL (6.4-8.2)
[2017-12-27] MEDS: HEPARIN 5,000 UNITS/ML, 1ML SQ SCH ×2 (06:32→14:58)
[2017-12-27] MEDS: LORazepam 0.5MG TABLET PO PRN (06:35)
[2017-12-27 08:06] VITALS: BP 146/84
[2017-12-27] MEDS: LACTOBACILLUS CHEW TABLET PO SCH (08:21)
[2017-12-27] MEDS: LINEZOLID 600 MG TABLET PO SCH (08:21)
[2017-12-27] MEDS: POTASSIUM CHLORIDE 20 MEQ TAB.ER.PRT PO SCH (08:21)
[2017-12-27] MEDS: MULTIVITAMIN 1 TABLET PO SCH (08:22)
[2017-12-27] MEDS: FERROUS SULFATE 325 MG TABLET PO SCH ×2 (08:22→11:56)
[2017-12-27] MEDS: THIAMINE 100MG TABLET PO SCH (08:22)
[2017-12-27] MEDS ORDERED: DOXY100C2 PO (12:29)
[2017-12-27] MEDS ORDERED: MULT1TAB60 PO (12:29)
[2017-12-27] MEDS ORDERED: ERGO500017 PO (12:29)
[2017-12-27 12:42] VITALS: BP 109/72
== END 2017-12-27 15:18 | DRG 602 ==
LOC: ED 23:57 → EDIP 12-13 01:56 → 4NOR 12-13 04:20
PROVIDERS: ADMIT Family Medicine; ATTEND Hospitalist
PROC: 0Y900ZZ Drainage of Right Buttock, Open Approach (ICD-10-PCS; 2017-12-13)
PROC: 0Y910ZZ Drainage of Left Buttock, Open Approach (ICD-10-PCS; 2017-12-13)
PROC: 02HV33Z Insertion of Infusion Device into Superior Vena Cava, Percutaneous Approach (ICD-10-PCS; principal; 2017-12-26)
PROC: B548ZZA Ultrasonography of Superior Vena Cava, Guidance (ICD-10-PCS; 2017-12-26)
DX: L02.31 Cutaneous abscess of buttock (principal); E43 Unspecified severe protein-calorie malnutrition; E87.1 Hypo-osmolality and hyponatremia; F10.239 Alcohol dependence with withdrawal, unspecified; N17.9 Acute kidney failure, unspecified; B95.62 Methicillin resistant Staphylococcus aureus infection as the cause of diseases classified elsewhere; D50.9 Iron deficiency anemia, unspecified; L03.317 Cellulitis of buttock; D53.9 Nutritional anemia, unspecified; D63.8 Anemia in other chronic diseases classified elsewhere; D69.6 Thrombocytopenia, unspecified; D75.89 Other specified diseases of blood and blood-forming organs; Z68.26 Body mass index [BMI] 26.0-26.9, adult; E55.9 Vitamin D deficiency, unspecified; E83.39 Other disorders of phosphorus metabolism; E83.42 Hypomagnesemia; E87.6 Hypokalemia; F17.200 Nicotine dependence, unspecified, uncomplicated; F41.9 Anxiety disorder, unspecified; K52.9 Noninfective gastroenteritis and colitis, unspecified; K74.60 Unspecified cirrhosis of liver; W57.XXXA Bitten or stung by nonvenomous insect and other nonvenomous arthropods, initial encounter; Z85.048 Personal history of other malignant neoplasm of rectum, rectosigmoid junction, and anus; Z90.49 Acquired absence of other specified parts of digestive tract
CPT/HCPCS: 36415; 36569; 71045; 74018; 76700; 76770; 76937; 77001; 80048; 80053; 80076; 80202; 80307; 81001; 82040; 82272; 82306; 82436; 82570; 82607; 82728; 82746; 83540; 83550; 83605; 83735; 83883; 83935; 83970; 84100; 84133; 84145; 84155; 84156; 84165; 84166; 84300; 84443; 84550; 85025; 85610; 85730; 86038; 86160; 86162; 86225; 86850; 86900; 87040; 87070; 87075; 87077; 87186; 87205; 87324; 93005; 96361; 96365; 96367; 96375; J0171; J1170; J1644; J1650; J1756; J2250; J2543; J2704; J3010; J3370; J3480; J3490; C1751; C9113; J0330; J2060; J3475; J7030; J7040; J7050; Q0163; Q0177

== ENCOUNTER 2018-01-08 14:49 | Emergency (ER) | payer MEDICAID ==
[~2018-01-08] VITALS: Ht 167.6 cm; Wt 80.6 kg
[~2018-01-08 14:49] MED LIST changes: +DOXY100C2 PO; +ERGO500017 PO; +MULT1TAB60 PO
[2018-01-08 15:29] LABS: BASOPHILS # (AUTO) 0.02 x10^3/uL (0-0.1); BASOPHILS % (AUTO) 0 % (0-1); EOSINOPHILS # (AUTO) 0.16 x10^3/uL (0-0.4); EOSINOPHILS % (AUTO) 1 % (1-7); LYMPHOCYTES # (AUTO) 0.98 x10^3/uL (1-3.4); LYMPHOCYTES % (AUTO) 8 % (22-44); MD NO; MEAN CORPUSCULAR HGB CONC 34.7 g/dL (33.2-36.2); MONOCYTES # (AUTO) 0.44 x10^3/uL (0.2-0.8); MONOCYTES % (AUTO) 3 % (2-9); NEUTROPHILS # (AUTO) 11.38 x10^3/uL (1.8-6.8); NEUTROPHILS % (AUTO) 88 % (42-75); PLATELET COUNT 177 x10^3/uL (130-400); RED BLOOD COUNT 2.39 x10^6/uL (4.38-5.82); RED CELL DISTRIBUTION WIDTH 15.6 % (9.4-14.8)
[2018-01-08] MEDS ORDERED: SODIUM CHLORIDE 0.9% 1,000ML IVBOLUS ONE (15:30)
[2018-01-08 15:40] LABS: ALANINE AMINOTRANSFERASE 22 U/L (12-78); ALBUMIN 2.9 g/dL (3.4-5.0); ANION GAP 7 mmol/L (5-15); CALCIUM 7.4 mg/dL (8.5-10.1); CHLORIDE 101 mmol/L (98-107); CREATININE 1.65 mg/dL (0.7-1.3)
[2018-01-08 15:42] LABS: ALKALINE PHOSPHATASE 144 U/L (45-117); BILIRUBIN,TOTAL 0.7 mg/dL (0.2-1.0)
[2018-01-08 15:57] VITALS: BP 131/78
== END 2018-01-08 17:20 | disposition home or self-care (01) ==
LOC: ED 15:15
DX: L02.31 Cutaneous abscess of buttock (principal); R53.1 Weakness; R42 Dizziness and giddiness; Z87.891 Personal history of nicotine dependence
CPT/HCPCS: 36415; 80053; 85025; 93005; 96360; 96361; 99285; J7030